=== PATIENT | female | born 1995 | race Caucasian/White ===

== ENCOUNTER 2017-11-09 13:21 | Outpatient (CLI) | payer OTHER, MEDICAID ==
[2017-11-09 13:51] LABS: APPEARANCE,URINE CLOUDY; BILIRUBIN,URINE NEGATIVE (NEGATIVE); COLOR,URINE YELLOW; GLUCOSE, URINE NEGATIVE (NEGATIVE); KETONES,URINE NEGATIVE (NEGATIVE); LEUKOCYTE ESTERASE,URINE TRACE (NEGATIVE); NITRITE,URINE NEGATIVE (NEGATIVE); PROTEIN,URINE 30 mg/dL (NEGATIVE); URINE SPECIFIC GRAVITY 1.024; UROBILINOGEN,URINE NEGATIVE mg/dL (<2.0)
--- NOTE | 2017-11-09 14:15 | Non Stress Test Report ---
Non Stress Test Datetime Report Generated by CPN: 11/09/2017 14:14 INDICATION Indication for Study: Ordered by Provider VITAL SIGNS Temperature - NST: 98.7 MONITORING Monitor Explained: Monitor Explained; Test Explained; Patient Verbalized Understanding Time on Monitor: 11/09/2017 13:39 Time off Monitor: 11/09/2017 14:07 NST Duration: 28 NST INTERVENTIONS NST Interventions: PO Hydration Physician Notified NST: Dr. Gaytan BABY A: [id number] BABY A Movement : Present Contraction Frequency : none FHR Baseline : 135 Accelerations : 15X15 Decelerations : None Variability : Moderate 6-25bpm NST Review: Meets Criteria for Reactive NST NST Review and Verified By : Radha Camp RNC NST Results: Reactive NST REPORT Report Trigger: Send Report
[2017-11-09 14:25] LABS: URINE AMPHETAMINES SCREEN NEGATIVE; URINE BARBITURATES SCREEN NEGATIVE; URINE BENZODIAZEPINES SCREEN NEGATIVE; URINE COCAINE SCREEN NEGATIVE; URINE MARIJUANA (THC) SCREEN NEGATIVE; URINE METHADONE SCREEN NEGATIVE; URINE PHENCYCLIDINE SCREEN NEGATIVE
== END 2017-11-09 14:31 | disposition home or self-care (01) ==
LOC: LC 13:21
PROVIDERS: ATTEND Student in an Organized Health Care Education/Training Program
PROC: 4A1HXCZ Monitoring of Products of Conception, Cardiac Rate, External Approach (ICD-10-PCS; principal; 2017-11-09)
DX: O46.93 Antepartum hemorrhage, unspecified, third trimester (principal); Z3A.39 39 weeks gestation of pregnancy
CPT/HCPCS: 59025; 80307; 81005

== ENCOUNTER 2017-11-21 00:09 | Inpatient (IN) | payer OTHER, MEDICAID ==
--- NOTE | 2017-11-21 00:51 | Admission Physical ---
Datetime Report Generated by CPN: 11/21/2017 00:50 CURRENT ADMISSION Chief Complaint: Scheduled Induction of Labor Indication for Induction: Post Dates Admit Impression : Postterm, Intrauterine Admit Plan: Admit to Unit; Initiate Labor Induction Protocol ALLERGIES Medication Allergies: No Medication Allergies: No Known Allergies (11/09/2017) Latex: No Latex Allergies OBSTETRICAL HISTORY EDC: 11/12/2017 00:00 (Annotations: Data stored by N on behalf of user) : 1 Para: 0 Term: 0 : 0 SAB: 0 IAB: 0 Ectopic: 0 Livin Cesareans: 0 VBACs: 0 Multiple Births: 0 Gestational Diabetes: No Rh Sensitization: No Incompetent Cervix: No ALISON: No Infertility: No ART Treatment: No Uterine Anomaly: No IUGR: No Hx Previous C/S: No Macrosomia: No Hx Loss/Stillborn: No PIH: No Hx : No Placenta Previa/Abruption: No Depression/PP Depression: No PTL/PROM: No Post Hemorrhage: No Current Procedures: Ultrasound; NST SEE RECORDS Alcohol: No Marijuana : No Cocaine: No Other Illicit Drugs: No Cigarettes: Former Smoker. [id number] MEDICAL HISTORY Diabetes: No Blood Transfusion: No Pulmonary Disease (Asthma, TB): No Breast Disease: No Hypertension: No Paratransit Driver Surgery: No Heart Disease: No Hosp/Surgery: No Autoimmune Disorder: No Anesthetic Complications: No Kidney Disease: No Abnormal Pap Smear: No Neuro/Epilepsy: No Psychiatric Disorders: No Other Medical Diseases: No Hepatitis/Liver Disease: No Significant Family History: No Varicosities/Phlebitis: No Trauma/Violence : No Thyroid Dysfunction: No INFECTIOUS HISTORY Gonorrhea: No Genital Herpes: No Chlamydia: Yes Tuberculosis: No Syphilis: No Hepatitis: No HIV/AIDS Exposure: No Rash or Viral Illness: No HPV: No Infectious History Comments: Chylamydia treated to cure 10/2017 PHYSICAL EXAM General: Normal HEENT: Normal Neurologic: Normal Thyroid: Normal Heart: Normal Lungs: Normal Breast: Deferred Back: Normal Abdomen: Normal Genitourinary Exam: Normal Extremities: Normal DTRs: Normal Pelvic Type: Adequate Vital Signs: Reviewed VAGINAL EXAM Dilatation: 1 Effacement: 80 Station: -1 MEMBRANES Pooling: Negative Membranes: Intact FETUS A EGA: 41.2 Monitoring: External US FHR- Baseline: 120 Variability: Moderate 6-25bpm Accelerations: 15X15 Decelerations: None FHR Category: Category I Presentation: Vertex Admit Comment: Planned cervadil PLANS FOR LABOR AND DELIVERY Labor and Delivery: None Pain Management: Epidural Feeding Preference: Breast Benefit of Breast Feed Discussed: Yes Circumcision: Yes INFORMED CONSENT Signature: with User ID: [email or web address]
[2017-11-21 00:53] LABS: APPEARANCE,URINE CLOUDY; BILIRUBIN,URINE NEGATIVE (NEGATIVE); COLOR,URINE YELLOW; GLUCOSE, URINE NEGATIVE (NEGATIVE); KETONES,URINE NEGATIVE (NEGATIVE); LEUKOCYTE ESTERASE,URINE LARGE (NEGATIVE); NITRITE,URINE NEGATIVE (NEGATIVE); PROTEIN,URINE NEGATIVE (NEGATIVE); URINE SPECIFIC GRAVITY 1.014; UROBILINOGEN,URINE NEGATIVE mg/dL (<2.0)
[2017-11-21 01:23] LABS: ABSOLUTE BASOPHILS # (AUTO) 0.1 10^3/uL (0.0-0.2); ABSOLUTE EOSINOPHILS # (AUTO) 0.1 10^3/uL (0.0-0.6); ABSOLUTE LYMPHOCYTES (AUTO) 1.7 10^3/uL (0.5-4.7); ABSOLUTE MONOCYTES (AUTO) 0.6 10^3/uL (0.1-1.4); ABSOLUTE NEUT (AUTO) 5.9 10^3/uL (1.7-8.2); BASOPHILS % (AUTO) 0.6 % (0-2); EOSINOPHILS % (AUTO) 0.9 % (0-6); HEMATOCRIT 29.6 % (36.0-47.0); HEMOGLOBIN 10.4 g/dL (12.0-15.5); LYMPHOCYTES % (AUTO) 20.1 % (13-45); MEAN CORPUSCULAR HGB CONC 35.2 g/dL (32.0-36.0); MEAN CORPUSCULAR VOLUME 91 fl (80-97); MONOCYTES % (AUTO) 7.3 % (3-13); PLATELET COUNT 210 10^3/uL (150-450); RED BLOOD COUNT 3.25 10^6/uL (3.72-5.28); RED CELL DISTRIBUTION WIDTH 13.7 % (11.5-14.0); SEGMENTED NEUTROPHILS % (AUTO) 71.1 % (42-78); TOTAL CELLS COUNTED % (AUTO) 100 %; WHITE BLOOD COUNT 8.3 10^3/uL (4.0-10.5)
[2017-11-21 01:24] LABS: URINE AMPHETAMINES SCREEN NEGATIVE; URINE BARBITURATES SCREEN NEGATIVE; URINE BENZODIAZEPINES SCREEN NEGATIVE; URINE COCAINE SCREEN NEGATIVE; URINE MARIJUANA (THC) SCREEN NEGATIVE; URINE METHADONE SCREEN NEGATIVE; URINE PHENCYCLIDINE SCREEN NEGATIVE
[2017-11-21] MEDS ORDERED: RINGERS SOLUTION,LACTATED 1,000 ML IV PRN (01:52)
[2017-11-21] MEDS ORDERED: RINGERS SOLUTION,LACTATED 300 ML IV ONE (02:05)
[2017-11-21] MEDS ORDERED: DINOPROSTONE 10 MG VAGINAL INSERT.SR PV ONE ×2 (02:07→02:30)
[2017-11-21] MEDS ORDERED: DINOPROSTONE 10 MG VAGINAL INSERT.SR ONE (02:15)
--- NOTE | 2017-11-21 09:31 | L&D Progress Notes ---
PROGRESS NOTES Datetime Report Generated by CPN: 11/21/2017 09:31 PROGRESS NOTE Impression Other: IUP @ [id number] Procedures: Sterile Vag Exam Plan: Continue Present Management; Induction Informed Consent Obtained: Vaginal Delivery; Induction of Labor; Risks, Benefits and Alternatives Discussed Vital Signs : Reviewed; Within Normal Limits Comment: S: pt. comfortable, not feeling crampy or contractions, denies any discomforts at this time O: VSS, cervix as stated, cervidil in place A: IUP @ [id number] IOL for post term P: continue IOL- will keep cervidil in place until 1330 then will start allow to shower/eat lunch if not in labor at that time and will start pitocin as needed VAGINAL EXAM Dilatation: 1-2 Dilatation: 1 Effacement: 80 Effacement: 80 Station: -1 Station: -1 Contractions: irreg MEMBRANES Pooling: Negative Membranes: Intact Membranes: Intact FETUS A Monitoring: External US Variability: Moderate 6-25bpm Accelerations: 15X15 Decelerations: None FHR Category: Category I : 41.0 Presentation: Vertex SIGNATURE SIGNATURE: [id number];[id number];[id number] SIGNATURE: [id number];[id number] SIGNATURE: [id number] Assignment: Guy Jesus MD Signature: with User ID: [email or web address] : with User ID: [email or web address]
[2017-11-21] MEDS ORDERED: PENICILLIN G POTASSIUM 5,000,000 UNIT in DEXTROSE 5%-WATER 100 ML IV ONE (13:20)
[2017-11-21] MEDS ORDERED: PENICILLIN G-K 5 MILLION UNIT VIAL ONE ×2 (14:24→18:03)
[2017-11-21] MEDS ORDERED: OXYTOCIN/NORMAL SALINE 20 UNIT/1,000 ML RTUINJ ONE (14:24)
[2017-11-21] MEDS ORDERED: OXYTOCIN/NORMAL SALINE 20 UNIT/1,000 ML RTUINJ IV PRN ×2 (14:30→19:29)
[2017-11-21] MEDS ORDERED: FENTANYL/BUPIVACAINE/NS/PF 200 MCG/100 ML RTUINJ EPI ONE (15:02)
[2017-11-21] MEDS ORDERED: EPHEDRINE SULFATE INJ 50 MG/1 ML AMPULE ONE (15:02)
[2017-11-21] MEDS ORDERED: BUPIVACAINE HCL 0.5 % INJ/PF 30 ML SDV ONE (15:03)
[2017-11-21] MEDS ORDERED: FENTANYL CITRATE INJ/PF 100 MCG/2 ML AMPUL ONE (15:38)
[2017-11-21] MEDS ORDERED: PENICILLIN G POTASSIUM 2,500,000 UNIT in DEXTROSE 5%-WATER 50 ML IV SCH (17:21)
--- NOTE | 2017-11-21 17:31 | L&D Progress Notes ---
PROGRESS NOTES Datetime Report Generated by CPN: 11/21/2017 17:31 PROGRESS NOTE Impression Other: IUP @ 80w2h-IYP stable Procedures: Artificial ROM; Sterile Vag Exam Plan: Continue Present Management; Induction Informed Consent Obtained: Vaginal Delivery; Induction of Labor; Risks, Benefits and Alternatives Discussed Vital Signs : Reviewed; Within Normal Limits Comment: S: reports complete relief with epidural placement O:vss, cervix as stated, pit @ 8mu/min A: IUP @ 41w2d IOL-stable AROM-clear fluid, tolerated well P: continue IOL with pitocin, anticipate delivery VAGINAL EXAM Dilatation: 6 Effacement: 100 Station: 0 Contractions: irregular MEMBRANES Membranes: Ruptured Amniotic Fluid Color: Clear FETUS A FHR - Baseline: 125 Monitoring: External US Variability: Moderate 6-25bpm FHR Category: Category I FETUS C SIGNATURE: [id number];[id number];[id number] Assignment: Guy Jesus MD Signature: with User ID: [email or web address] : with User ID: [email or web address]
[2017-11-21] MEDS ORDERED: GLYCERIN/WITCH HAZEL LEAF 1 EACH MED..PAD TP PRN (19:29)
[2017-11-21] MEDS ORDERED: PROMETHAZINE HCL INJ 25 MG/1 ML VIAL IV PRN (19:29)
[2017-11-21] MEDS ORDERED: DIBUCAINE 1% OINTMENT 28 GM TP PRN (19:29)
[2017-11-21] MEDS ORDERED: DIPHENHYDRAMINE HCL 25 MG CAPSULE PO PRN (19:29)
[2017-11-21] MEDS ORDERED: MEASLES,MUMPS&RUBELLA VACC/PF 0.5 ML VIAL SUBCUT PRN (19:29)
[2017-11-21] MEDS ORDERED: DIPH/PERTUSS(ACELL)/TETANUS VAC/PF 0.5 ML SYR (>=10YO) IM PRN (19:29)
[2017-11-21] MEDS ORDERED: MAGNESIUM HYDROXIDE SUSP 30 ML UDCUP PO PRN (19:29)
[2017-11-21] MEDS ORDERED: ZOLPIDEM TARTRATE 5 MG TABLET PO PRN (19:29)
[2017-11-21] MEDS ORDERED: PROMETHAZINE HCL 25 MG SUPP.RECT PR PRN (19:29)
[2017-11-21] MEDS ORDERED: PROMETHAZINE HCL 25 MG TABLET PO PRN (19:29)
[2017-11-21] MEDS ORDERED: ACETAMINOPHEN WITH CODEINE #3 TABLET PO PRN (19:29)
[2017-11-21] MEDS ORDERED: PSEUDOEPHEDRINE HCL 30 MG TABLET PO PRN (19:29)
[2017-11-21] MEDS ORDERED: NA PHOS,M-B/NA PHOS,DI-BA (ADULT) 133 ML ENEMA PR PRN (19:29)
[2017-11-21] MEDS ORDERED: BENZOCAINE/MENTHOL AEROSOL SPRAY 56 ML TOP PRN (19:29)
[2017-11-21] MEDS ORDERED: ACETAMINOPHEN 650 MG SUPP.RECT PR PRN (19:29)
--- NOTE | 2017-11-21 19:29 | PDOC DELIVERY SUMMARY ---
Delivery Summary - Maternal Ruptured Membranes: AROM Fluids: Clear - Delivery Labor: Induction Presentation: Vertex Uterine Contraction Monitoring: External Support Person Present: Yes Number of Vessels (Cord): 3 Nuchal Cord: No - Medications Type of Anesthesia:: Epidural
[2017-11-21] MEDS ORDERED: IBUPROFEN 800 MG TABLET ONE (19:55)
--- NOTE | 2017-11-21 21:27 | Warning Signs in Babies ---
VOD Warning Signs Datetime Report Generated by [facility]: 11/21/2017 21:27 VOD#608 -Warning Signs in Babies: Viewed with Parent(s)/Family (11/09/2017 14:12:Sari Mora RN)
--- NOTE | 2017-11-21 21:27 | Delivery Summary ---
Del Sum A-C Datetime Report Generated by CPN: 11/21/2017 21:27 DELIVERY PERSONNEL DELIVERY PERSONNEL: [id number] Delivery Doctor:: Guy Jesus, MD Labor and Delivery Nurse:: Leonela Wheat prepress operator Nurse:: Sari Mora RN Additional Personnel: : Kev Ertel, TANK WELDER MATERNAL INFORMATION Delivery Anesthesia: Epidural Medications After Delivery: Pitocin Drip 20 Units/1000ml NSS Maternal Complications: None LABOR SUMMARY EDC: 11/12/2017 00:00 (Annotations: Data stored by [facility] on behalf of user) No. Babies in Womb: 1 Attempted: No Labor Anesthesia: Epidural LABOR INFORMATION Reason for Induction: Post Dates Onset of Labor: 11/21/2017 09:05 Complete Dilatation: 11/21/2017 18:49 Cervical Ripening Agents: Cervidil Oxytocin: Induction Group B Beta Strep: Positive Antibiotics # of Doses: 2 Antibiotics Time of Last Dose: 1808 Name of Antibiotic Given: PCN Steroids Given: None Reason Steroids Not Administered: Not Applicable MEMBRANES Membranes Rupture Method: Artificial Rupture of Membranes: 11/21/2017 17:16 Length of Rupture (hr): 1.97 Amniotic Fluid Color: Clear Amniotic Fluid Amount: Small Amniotic Fluid Odor: Normal STAGES OF LABOR Stage 1 hr: 9 Stage 1 min: 44 Stage 2 hr: 0 Stage 2 min: 25 Stage 3 hr: 0 Stage 3 min: 4 Total Time in Labor hr: 10 Total Time in Labor min: 13 VAGINAL DELIVERY Episiotomy: None Laceration #1: Vaginal Laceration Extension #1: N/A Laceration Repair: Not Applicable Laceration Repair Note: repaired with 2-0 vicryl Sponge Count Correct: N/A Sharps Count Correct: N/A CSECTION DELIVERY Primary Indication: N/A Secondary Indication: N/A CSection Incidence: N/A Labor: N/A Elective: N/A CSection Incision: N/A BABY A INFORMATION Infant Delivery Date/Time: 11/21/2017 19:14 Method of Delivery: Vaginal Born in Route : No : N/A Forceps: N/A Vacuum Extraction: N/A Shoulder Dystocia : No PRESENTATION/POSITION BABY A Presentation: Cephalic Cephalic Presentation: Vertex Vertex Position: Left Occipital Anterior Breech Presentation: N/A PLACENTA INFORMATION BABY A Placenta Delivery Time : 11/21/2017 19:18 Placenta Method of Delivery: Spontaneous Placenta Status: Delivered SCORES BABY A Heart Rate 1 min: >100 bpm Resp Effort 1 min: Good Cry Reflex Irritability 1 min: Cough or Sneeze or Pulls Away Muscle Tone 1 min: Active Motion Color 1 min: Blue/Pale SCORE 1 MIN: 8 Heart Rate 5 min: >100 bpm Resp Effort 5 min: Good Cry Reflex Irritability 5 min: Cough or Sneeze or Pulls Away Muscle Tone 5 min: Active Motion Color 5 min: Body [place], Extremities Blue SCORE 5 MIN: 9 INFANT INFORMATION BABY A Gestational Age at Delivery: 41.2 Gestational Status: Late Term- 41- 41.6 Weeks Infant Outcome : Liveborn Infant Condition : Stable Infant Sex: Male IDENTIFICATION BABY A Verification Date/Time: 11/21/2017 19:30 ID Band Number: [id number] Mother's Name Verified: Yes Infant RN Verifying : Pacheco Dietrich RN WEIGHT/LENGTH BABY A Birthweight (gm): 3790 Weight (lb): 8 Infant Weight (oz): 6 Infant Length (in): 20.50 Infant Length (cm): 52.07 CORD INFORMATION BABY A No. Cord Vessels: 3 Nuchal Cord : N/A Cord Blood Taken: Yes-For Storage (Mom's Blood type +) Infant Suction: Mouth; Nose ASSESSMENT BABY A Infant Complications: None Physical Findings at Delivery: Within Normal Limits Respirations: Appears Normal Skin to Skin: Yes Skin to Skin Time (min): 60 Transferred To: Nursery BABY B INFORMATION : N/A SIGNATURES Signature: with User ID: [email or web address]
--- NOTE | 2017-11-21 21:42 | Warning Signs in Babies ---
VOD Warning Signs Datetime Report Generated by N: 11/21/2017 21:42 VOD#608 -Warning Signs in Babies: Viewed with Parent(s)/Family (11/21/2017 21:30:Sari Mora RN)
[2017-11-22] MEDS: IBUPROFEN 800 MG TABLET PO SCH ×4 (05:52→21:45)
[2017-11-22 07:49] LABS: HEMATOCRIT 29.1 % (36.0-47.0); HEMOGLOBIN 10.1 g/dL (12.0-15.5); MEAN CORPUSCULAR HEMOGLOBIN 31.8 pg (27.0-33.4); MEAN CORPUSCULAR HGB CONC 34.6 g/dL (32.0-36.0); MEAN CORPUSCULAR VOLUME 92 fl (80-97); PLATELET COUNT 203 10^3/uL (150-450); RED BLOOD COUNT 3.16 10^6/uL (3.72-5.28); RED CELL DISTRIBUTION WIDTH 14.2 % (11.5-14.0); WHITE BLOOD COUNT 14.5 10^3/uL (4.0-10.5)
[2017-11-22] MEDS: FAMOTIDINE 20 MG TABLET PO SCH ×3 (08:01→21:45)
[2017-11-22] MEDS: FERROUS SULFATE 325 MG TABLET PO SCH ×2 (09:54→17:42)
[2017-11-22] MEDS: PRENATAL VITAMIN W DHA CAPSULE PO SCH (09:54)
[2017-11-22] MEDS: SENNOSIDES/DOCUSATE 8.6-50 MG 1 EACH TABLET PO SCH (09:54)
[2017-11-22] MEDS: DOCUSATE SODIUM 100 MG CAPSULE PO SCH ×2 (09:54→17:42)
--- NOTE | 2017-11-22 12:52 | PDOC PROGRESS REPORT ---
Subjective-OB Progress Note for:: 11/22/17 Subjective: Pt doing well, no concerns. She reports light bleeding, reg diet and voiding without difficulty. Physical Exam (OB) Vital Signs: Temp Pulse Resp BP Pulse Ox 98.5 F 50 L 16 129/84 H 100 11/22/17 07:36 11/22/17 07:36 11/22/17 07:36 11/22/17 07:36 11/22/17 07:36 Intake & Output 11/21/17 11/22/17 11/23/17 06:59 06:59 06:59 Weight 80.5 kg - PIH/Pre-Eclampsia Headache: Absent Epigastric Pain: No Visual Changes: No - Lochia Lochia Amount: Scant < 10 ml Lochia Color: Rubra/Red - Abdomen Description: Tender Hernia Present: No Fundal Description: Firm Fundal Height: u/u - u/2 Objective-Diagnostic Laboratory: 11/22/17 07:11 11/22/17 07:11 WBC 14.5 H RBC 3.16 L Hgb 10.1 L Hct 29.1 L MCV 92 MCH 31.8 MCHC 34.6 RDW 14.2 H Plt Count 203 Assessment and Plan(PN) - Assessment and Plan (1) Vaginal delivery Is this a current diagnosis for this admission?: Yes - Time Spent with Patient Time with patient: Less than 15 minutes Medications reviewed and adjusted accordingly: Yes - Disposition Anticipated Discharge: Home Within: within 24 hours
[2017-11-23] MEDS: IBUPROFEN 800 MG TABLET PO SCH (06:08)
--- NOTE | 2017-11-23 09:01 | PDOC DISCHARGE SUMMARY ---
Final Diagnosis Discharge Date: 11/23/17 - Final Diagnosis (2) Vaginal delivery Is this a current diagnosis for this admission?: Yes Discharge Data - Discharge Medication Prescriptions: Ibuprofen [Motrin 800 mg Tablet] 800 mg PO Q8 #90 tablet Home Medications: Pnv No.95/Ferrous Fum/Folic AC [ Multivitamin Tablet] 1 tab PO DAILY Ibuprofen [Motrin 800 mg Tablet] 800 mg PO Q8 #90 tablet 11/23/17 Reason(s) for Admission: Induction of Labor Procedures: None Intrapartum Procedure(s): Spontaneous Vaginal Delivery - Diagnosis Test Laboratory: Temp Pulse Resp BP Pulse Ox 98.2 F 58 L 17 115/60 99 11/23/17 08:35 11/23/17 08:35 11/23/17 08:35 11/22/17 19:54 11/23/17 08:35 11/21/17 11/21/17 11/22/17 00:30 01:03 07:11 RBC 3.25 L 3.16 L Hgb 10.4 L 10.1 L Hct 29.6 L 29.1 L Urine Opiates Screen NEGATIVE - Discharge information/Instructions Discharge Activity: Activity As Tolerated, No Driving, No Lifting/Push/Pulling, Pelvic Rest, Slowly Increase Activity, No tub bath, Walk Frequently Discharge Diet: Regular Disposition: HOME, SELF-CARE Follow up with: [facility] in: 3
[2017-11-23 09:04] VITALS: BP 125/68
[2017-11-23] MEDS: FERROUS SULFATE 325 MG TABLET PO SCH (10:51)
[2017-11-23] MEDS: DOCUSATE SODIUM 100 MG CAPSULE PO SCH (10:51)
[2017-11-23] MEDS: SENNOSIDES/DOCUSATE 8.6-50 MG 1 EACH TABLET PO SCH (10:51)
[2017-11-23] MEDS: FAMOTIDINE 20 MG TABLET PO SCH (10:51)
[2017-11-23] MEDS: PRENATAL VITAMIN W DHA CAPSULE PO SCH (10:51)
== END 2017-11-23 12:38 | disposition home or self-care (01) | DRG 775 ==
LOC: LR 00:09 → 2S 22:02
PROVIDERS: ADMIT Obstetrics & Gynecology; ATTEND Obstetrics & Gynecology
PROC: 10E0XZZ Delivery of Products of Conception, External Approach (ICD-10-PCS; principal; 2017-11-21)
PROC: 0HQ9XZZ Repair Perineum Skin, External Approach (ICD-10-PCS; 2017-11-21)
PROC: 3E033VJ Introduction of Other Hormone into Peripheral Vein, Percutaneous Approach (ICD-10-PCS; 2017-11-21)
PROC: 3E0P7VZ Introduction of Hormone into Female Reproductive, Via Natural or Artificial Opening (ICD-10-PCS; 2017-11-21)
PROC: 10907ZC Drainage of Amniotic Fluid, Therapeutic from Products of Conception, Via Natural or Artificial Opening (ICD-10-PCS; 2017-11-21)
PROC: 4A1HXCZ Monitoring of Products of Conception, Cardiac Rate, External Approach (ICD-10-PCS; 2017-11-21)
DX: O48.0 Post-term pregnancy (principal); O99.824 Streptococcus B carrier state complicating childbirth; O70.0 First degree perineal laceration during delivery; Z87.891 Personal history of nicotine dependence; Z3A.41 41 weeks gestation of pregnancy; Z37.0 Single live birth
CPT/HCPCS: 36415; 80307; 81005; 85025; 85027; 86592; 86850; 86900; 86901; J2540; J2590; J3010; J3490

== ENCOUNTER 2019-10-04 06:53 | Inpatient (IN) | payer MEDICAID ==
[2019-10-04 07:41] LABS: ABSOLUTE BASOPHILS # (AUTO) 0.1 10^3/uL (0.0-0.2); ABSOLUTE EOSINOPHILS # (AUTO) 0.1 10^3/uL (0.0-0.6); ABSOLUTE LYMPHOCYTES (AUTO) 1.9 10^3/uL (0.5-4.7); ABSOLUTE MONOCYTES (AUTO) 0.6 10^3/uL (0.1-1.4); ABSOLUTE NEUT (AUTO) 6.3 10^3/uL (1.7-8.2); BASOPHILS % (AUTO) 0.8 % (0-2); EOSINOPHILS % (AUTO) 0.8 % (0-6); HEMATOCRIT 36.4 % (36.0-47.0); HEMOGLOBIN 12.5 g/dL (12.0-15.5); LYMPHOCYTES % (AUTO) 21.6 % (13-45); MEAN CORPUSCULAR HEMOGLOBIN 31.5 pg (27.0-33.4); MEAN CORPUSCULAR HGB CONC 34.4 g/dL (32.0-36.0); MEAN CORPUSCULAR VOLUME 92 fl (80-97); MONOCYTES % (AUTO) 6.6 % (3-13); PLATELET COUNT 229 10^3/uL (150-450); RED BLOOD COUNT 3.98 10^6/uL (3.72-5.28); RED CELL DISTRIBUTION WIDTH 13.3 % (11.5-14.0); SEGMENTED NEUTROPHILS % (AUTO) 70.2 % (42-78); TOTAL CELLS COUNTED % (AUTO) 100 %
[2019-10-04 07:45] LABS: APPEARANCE,URINE SLIGHTLY-CLOUDY; BILIRUBIN,URINE NEGATIVE (NEGATIVE); COLOR,URINE YELLOW; GLUCOSE, URINE NEGATIVE (NEGATIVE); KETONES,URINE TRACE mg/dL (NEGATIVE); LEUKOCYTE ESTERASE,URINE TRACE (NEGATIVE); NITRITE,URINE NEGATIVE (NEGATIVE); PROTEIN,URINE 30 mg/dL (NEGATIVE); UROBILINOGEN,URINE NEGATIVE mg/dL (<2.0)
[2019-10-04 08:02] LABS: URINE AMPHETAMINES SCREEN NEGATIVE; URINE BARBITURATES SCREEN NEGATIVE; URINE BENZODIAZEPINES SCREEN NEGATIVE; URINE COCAINE SCREEN NEGATIVE; URINE MARIJUANA (THC) SCREEN NEGATIVE; URINE METHADONE SCREEN NEGATIVE; URINE PHENCYCLIDINE SCREEN NEGATIVE
[2019-10-04] MEDS ORDERED: LIDOCAINE 1% INJ-PF (10 MG/ML) 30 ML SDV ONE ×2 (08:03→11:06)
[2019-10-04] MEDS ORDERED: MISOPROSTOL 0.2 MG TABLET ONE ×2 (08:03→11:06)
[2019-10-04] MEDS ORDERED: OXYTOCIN/0.9 % SODIUM CHLORIDE 30 UNIT/500 ML RTUINJ ONE ×2 (08:03→15:12)
[2019-10-04] MEDS ORDERED: OXYTOCIN 10 UNIT/ML VIAL ONE ×2 (08:03→11:05)
[2019-10-04] MEDS ORDERED: PENICILLIN G-K 5 MILLION UNIT VIAL ONE ×2 (08:16→11:43)
[2019-10-04] MEDS ORDERED: BUPIVACAINE HCL 0.25 % INJ/PF (2.5 MG/1 ML) 30 ML VIAL ONE (12:18)
[2019-10-04] MEDS ORDERED: FENTANYL/BUPIVACAINE/NS/PF 300 MCG/150 ML RTUINJ EPI ONE (12:18)
[2019-10-04] MEDS ORDERED: EPHEDRINE SULFATE INJ 50 MG/1 ML AMPULE ONE (12:18)
--- NOTE | 2019-10-04 12:48 | Admission Physical ---
Datetime Report Generated by CPN: 10/04/2019 12:47 CURRENT ADMISSION Chief Complaint: Scheduled Induction of Labor Indication for Induction: Post Dates Admit Impression : Postterm, Intrauterine ; No Active Labor Admit Plan: Initiate Labor Induction Protocol Admit Plan- Other: GBS + ALLERGIES Medication Allergies: No Medication Allergies: No Known Allergies (05/01/2018) Latex: No Latex Allergies Food Allergies: none Environmental Allergies: none OBSTETRICAL HISTORY EDC: 09/29/2019 00:00 : 2 Para: 1 Term: 1 : 0 SAB: 0 IAB: 0 Ectopic: 0 Livin Cesareans: 0 VBACs: 0 Multiple Births: 0 Gestational Diabetes: No Rh Sensitization: No Incompetent Cervix: No ALISON: No Infertility: No ART Treatment: No Uterine Anomaly: No IUGR: No Hx Previous C/S: No Macrosomia: No Hx Loss/Stillborn: No PIH: No Hx : No Placenta Previa/Abruption: No Depression/PP Depression: Yes PTL/PROM: No Post Hemorrhage: No Current Procedures: Ultrasound; NST Obstetrical History Comments: 2017 G2- Current SEE RECORDS Alcohol: No Marijuana : No Cocaine: No Other Illicit Drugs: No Cigarettes: Never Smoker. [id number] MEDICAL HISTORY Diabetes: No Blood Transfusion: No Pulmonary Disease (Asthma, TB): No Breast Disease: No Hypertension: No Herb Digger Surgery: No Heart Disease: No Hosp/Surgery: No Autoimmune Disorder: No Anesthetic Complications: No Kidney Disease: Yes Abnormal Pap Smear: No Neuro/Epilepsy: No Psychiatric Disorders: No Other Medical Diseases: No Hepatitis/Liver Disease: No Significant Family History: No Trauma/Violence : No INFECTIOUS HISTORY Gonorrhea: No Genital Herpes: No Chlamydia: No Tuberculosis: No Syphilis: No Hepatitis: No HIV/AIDS Exposure: No Rash or Viral Illness: No HPV: Yes PHYSICAL EXAM General: Normal HEENT: Normal Neurologic: Normal Thyroid: Deferred Heart: Normal Lungs: Normal Breast: Deferred Back: Deferred Abdomen: Normal Genitourinary Exam: Normal Extremities: Normal DTRs: Deferred Pelvic Type: Adequate Vital Signs: Reviewed VAGINAL EXAM Dilatation: 3 Effacement: 50 Station: -2 Contraction Comments: few MEMBRANES Membranes: Intact FETUS A EGA: 40.5 FHR- Baseline: 140 Variability: Moderate 6-25bpm Accelerations: 15X15 Presentation: Vertex Admit Comment: GBS+, treat with PCN AROM after 2nd dose plans for epidural PLANS FOR LABOR AND DELIVERY Labor and Delivery: None Pain Management: Epidural Feeding Preference: Breast Circumcision: Yes INFORMED CONSENT Assignment: Guy Jesus MD Signature: with User ID: [email or web address] : with User ID: [email or web address]
[2019-10-04] MEDS ORDERED: DIPH/PERTUSS(ACELL)/TETANUS VAC/PF 0.5 ML SYR (>=10YO) IM PRN (15:50)
[2019-10-04] MEDS ORDERED: OXYTOCIN/0.9 % SODIUM CHLORIDE 30 UNIT/500 ML RTUINJ IV PRN (15:50)
[2019-10-04] MEDS ORDERED: MAGNESIUM HYDROXIDE SUSP 30 ML UDCUP PO PRN (15:50)
[2019-10-04] MEDS ORDERED: DIPHENHYDRAMINE HCL 25 MG CAPSULE PO PRN (15:50)
[2019-10-04] MEDS ORDERED: PROMETHAZINE HCL 25 MG TABLET PO PRN (15:50)
[2019-10-04] MEDS ORDERED: DIBUCAINE 1% OINTMENT 28 GM TP PRN (15:50)
[2019-10-04] MEDS ORDERED: ZOLPIDEM TARTRATE 5 MG TABLET PO PRN (15:50)
[2019-10-04] MEDS ORDERED: MEASLES,MUMPS&RUBELLA VACC/PF 0.5 ML VIAL SUBCUT PRN (15:50)
[2019-10-04] MEDS ORDERED: BENZOCAINE/MENTHOL AEROSOL SPRAY 56 ML TOP PRN (15:50)
[2019-10-04] MEDS ORDERED: GLYCERIN/WITCH HAZEL LEAF 1 EACH MED..WIPE TP PRN (15:50)
--- NOTE | 2019-10-04 18:10 | Delivery Summary ---
Del Sum A-C Datetime Report Generated by CPN: 10/04/2019 18:10 DELIVERY PERSONNEL DELIVERY PERSONNEL: [id number] Delivery Doctor:: Guy Jesus MD Nurse Mine Boss Certified:: Monica Connelly CNM COMMUNITY HEALTH REPRESENTATIVE:: Ernestine Parekh CRNA Labor and Delivery Nurse:: Ashli Quintero RNlasting machine operator Nurse:: Yannick Laswon RN Nursery Nurse:: Willa Mcdonnell RN Curriculum Manager/CONSTRUCTION CHECKER: Lori Oliveira, ST MATERNAL INFORMATION Delivery Anesthesia: Epidural Medications After Delivery: Pitocin 30 Units in 500ml NS/D5W Delivery QBL: 150 Maternal Complications: None Provider Comments: SVDVM over intact perineum. MITCHELL to SRUTHI with loose nuchal cord reduced. Infant with spont cry, to maternal abd. Dried and stimulated, bulb suctioned per Nursery RN. Placenta partially , assisted with removal at [facility]. Bleeding noted, cytotec placed rectally. Apgars 8,8. QBL 150. Mother and infant stable. LABOR SUMMARY EDC: 09/29/2019 00:00 No. Babies in Womb: 1 Attempted: No Labor Anesthesia: Epidural LABOR INFORMATION Reason for Induction: Post Dates Onset of Labor: 10/04/2019 07:45 Complete Dilatation: 10/04/2019 14:10 Oxytocin: Induction Group B Beta Strep: Positive Antibiotics # of Doses: 2 Antibiotics Time of Last Dose: 1130 Name of Antibiotic Given: Penicillin Steroids Given: None Reason Steroids Not Administered: Not Applicable MEMBRANES Membranes Rupture Method: Artificial Rupture of Membranes: 10/04/2019 12:06 Length of Rupture (hr): 2.78 Amniotic Fluid Color: Heavy Meconium Amniotic Fluid Amount: Small STAGES OF LABOR Stage 1 hr: 6 Stage 1 min: 25 Stage 2 hr: 0 Stage 2 min: 43 Stage 3 hr: 0 Stage 3 min: 5 Total Time in Labor hr: 7 Total Time in Labor min: 13 VAGINAL DELIVERY Episiotomy: None Laceration #1: Vaginal Laceration Extension #1: First Degree Other Laceration: small vaginal lac (Annotations: Data stored by [facility] on behalf of user) Laceration Repair: Not Applicable Laceration Repair Note: vicryl suture used for repair by Dr. Jesus BABY A INFORMATION Delivery Date/Time: 10/04/2019 14:53 Method of Delivery: Vaginal Nurse Controlled Delivery: No Born in Route : No : N/A Forceps: N/A Vacuum Extraction: N/A Shoulder Dystocia : No PRESENTATION/POSITION BABY A Presentation: Cephalic Cephalic Presentation: Brow Vertex Position: Left Occipital Posterior Breech Presentation: N/A PLACENTA INFORMATION BABY A Placenta Delivery Time : 10/04/2019 14:58 Placenta Method of Delivery: Spontaneous Placenta Status: Delivered SCORES BABY A Heart Rate 1 min: >100 bpm Resp Effort 1 min: Good Cry Reflex Irritability 1 min: Cough or Sneeze or Pulls Away Muscle Tone 1 min: Active Motion Color 1 min: Blue/Pale Resuscitation Effort 1 min: Tactile Stimulation SCORE 1 MIN: 8 Heart Rate 5 min: >100 bpm Resp Effort 5 min: Good Cry Reflex Irritability 5 min: Cough or Sneeze or Pulls Away Muscle Tone 5 min: Active Motion Color 5 min: Blue/Pale Resuscitation Effort 5 min: Tactile Stimulation; Oxygen SCORE 5 MIN: 8 Heart Rate 10 min: >100 bpm Resp Effort 10 min: Good Cry Reflex Irritability 10 min: Cough or Sneeze or Pulls Away Muscle Tone 10 min: Active Motion Color 10 min: Body [place], Extremities Blue Resuscitation Effort 10 min: N/A SCORE 10 MIN: 9 INFANT INFORMATION BABY A Gestational Age at Delivery: 40.5 Gestational Status: Full Term- 39- 40.6 Weeks Infant Outcome : Liveborn Condition : Stable Sex: Male IDENTIFICATION BABY A Infant Verification Date/Time: 10/04/2019 15:02 ID Band Number: [id number] Mother's Name Verified: Yes Infant RN Verifying : GRIS Ramirez Additional Verifying Personnel: GRIS Teague WEIGHT/LENGTH BABY A Infant Birthweight (gm): 4499 Infant Weight (lb): 9 Weight (oz): 15 Infant Length (in): 21.00 Length (cm): 53.34 CORD INFORMATION BABY A No. Cord Vessels: 3 Nuchal Cord : Around Neck x1, Loose Suction: Mouth; Nose ASSESSMENT BABY A Infant Complications: Meconium Physical Findings at Delivery: Bruising Skin to Skin: Yes SIGNATURES Assignment: Guy Jesus MD Signature: with User ID: [email or web address] : with User ID: [email or web address] : I was personally available for consultation and serving as supervising physician for the P.
[2019-10-04] MEDS: FERROUS SULFATE 325 MG TABLET PO SCH (20:31)
[2019-10-04] MEDS: DOCUSATE SODIUM 100 MG CAPSULE PO SCH (20:31)
[2019-10-04] MEDS: IBUPROFEN 800 MG TABLET PO SCH (21:27)
[2019-10-05] MEDS: IBUPROFEN 800 MG TABLET PO SCH ×3 (05:57→21:10)
[2019-10-05 08:00] LABS: HEMATOCRIT 31.9 % (36.0-47.0); HEMOGLOBIN 11.1 g/dL (12.0-15.5); MEAN CORPUSCULAR HEMOGLOBIN 31.9 pg (27.0-33.4); MEAN CORPUSCULAR HGB CONC 34.7 g/dL (32.0-36.0); MEAN CORPUSCULAR VOLUME 92 fl (80-97); PLATELET COUNT 182 10^3/uL (150-450); RED BLOOD COUNT 3.48 10^6/uL (3.72-5.28); RED CELL DISTRIBUTION WIDTH 13.3 % (11.5-14.0); WHITE BLOOD COUNT 10.7 10^3/uL (4.0-10.5)
[2019-10-05] MEDS: DOCUSATE SODIUM 100 MG CAPSULE PO SCH ×2 (09:53→18:44)
[2019-10-05] MEDS: FERROUS SULFATE 325 MG TABLET PO SCH ×2 (09:53→18:45)
[2019-10-05] MEDS: PRENATAL VITAMIN W DHA CAPSULE PO SCH (09:53)
[2019-10-05] MEDS: SENNOSIDES/DOCUSATE 8.6-50 MG 1 EACH TABLET PO SCH (09:53)
--- NOTE | 2019-10-05 11:26 | PDOC PROGRESS REPORT ---
Subjective-OB Progress Note for:: 10/05/19 Subjective: Pt doing well, no concerns. She reports light bleeding, reg diet and voiding without difficulty. Physical Exam (OB) Vital Signs: Temp Pulse Resp BP Pulse Ox 97.7 F 57 L 18 115/68 99 10/05/19 07:30 10/05/19 07:30 10/05/19 07:30 10/05/19 07:30 10/05/19 07:30 Intake & Output 10/04/19 10/05/19 10/06/19 06:59 06:59 06:59 Weight 87.4 kg - Lochia Lochia Amount: Scant < 10 ml Lochia Color: Rubra/Red - Abdomen Description: Soft Hernia Present: No Fundal Description: Firm, Midline Fundal Height: u/u - u/2 Objective-Diagnostic Laboratory: 10/05/19 07:13 10/05/19 07:13 WBC 10.7 H RBC 3.48 L Hgb 11.1 L Hct 31.9 L MCV 92 MCH 31.9 MCHC 34.7 RDW 13.3 Plt Count 182 Assessment and Plan(PN) - Assessment and Plan (1) Qualifiers: Weeks of gestation: 40 weeks Qualified Code(s): Z3A.40 - 40 weeks gestation of Is this a current diagnosis for this admission?: Yes (2) Vaginal delivery Is this a current diagnosis for this admission?: Yes - Time Spent with Patient Time with patient: Less than 15 minutes Medications reviewed and adjusted accordingly: Yes - Disposition Anticipated Discharge: Home Within: within 24 hours
[2019-10-06] MEDS: IBUPROFEN 800 MG TABLET PO SCH (05:13)
--- NOTE | 2019-10-06 09:00 | PDOC DISCHARGE SUMMARY ---
Impression - Admit/DC Date/PCP Admission Date/Primary Care Provider: 10/04/19 06:53 VICTORINO GILMORE MD Discharge Date: 10/06/19 - Discharge Diagnosis (1) Is this a current diagnosis for this admission?: Yes (2) Vaginal delivery Is this a current diagnosis for this admission?: Yes - Additional Information Resuscitation Status: Full Code Discharge Diet: Regular Discharge Activity: Balance Activity w/Rest, Pelvic Rest Referrals: VICTORINO GILMORE MD [Primary Care Provider] - Prescriptions: Ibuprofen [Motrin 800 mg Tablet] 800 mg PO Q8HP PRN #60 tablet PRN Reason: Home Medications: Pnv No.95/Ferrous Fum/Folic AC [ Multivitamin Tablet] 1 tab PO DAILY 11/09/17 Escitalopram Oxalate [Lexapro] 5 mg PO 10/04/19 Ibuprofen [Motrin 800 mg Tablet] 800 mg PO Q8HP PRN #60 tablet 10/06/19 HPI Gestational Age: 40 Reason(s) for Admission: Induction of Labor Procedures: NST Intrapartum Procedure(s): Spontaneous Vaginal Delivery Complication(s): Laceration-Vaginal Laceration-Degree: 1st Results Laboratory Results: WBC 10.7 10^3/uL (4.0-10.5) H 10/05/19 07:13 RBC 3.48 10^6/uL (3.72-5.28) L 10/05/19 07:13 Hgb 11.1 g/dL (12.0-15.5) L 10/05/19 07:13 Hct 31.9 % (36.0-47.0) L 10/05/19 07:13 MCV 92 fl (80-97) 10/05/19 07:13 MCH 31.9 pg (27.0-33.4) 10/05/19 07:13 MCHC 34.7 g/dL (32.0-36.0) 10/05/19 07:13 RDW 13.3 % (11.5-14.0) 10/05/19 07:13 Plt Count 182 10^3/uL (150-450) 10/05/19 07:13 Lymph % (Auto) 21.6 % (13-45) 10/04/19 07:16 [place] % (Auto) 6.6 % (3-13) 10/04/19 07:16 Eos % (Auto) 0.8 % (0-6) 10/04/19 07:16 Baso % (Auto) 0.8 % (0-2) 10/04/19 07:16 Absolute Neuts (auto) 6.3 10^3/uL (1.7-8.2) 10/04/19 07:16 Absolute Lymphs (auto) 1.9 10^3/uL (0.5-4.7) 10/04/19 07:16 Absolute Monos (auto) 0.6 10^3/uL (0.1-1.4) 10/04/19 07:16 Absolute Eos (auto) 0.1 10^3/uL (0.0-0.6) 10/04/19 07:16 Absolute Basos (auto) 0.1 10^3/uL (0.0-0.2) 10/04/19 07:16 Seg Neutrophils % 70.2 % (42-78) 10/04/19 07:16 Urine Color YELLOW 10/04/19 07:11 Urine Appearance SLIGHTLY-CLOUDY 10/04/19 07:11 Urine pH 6.0 (5.0-9.0) 10/04/19 07:11 Ur Specific [place] 1.020 10/04/19 07:11 Urine Protein 30 mg/dL (NEGATIVE) H 10/04/19 07:11 Urine Glucose (UA) NEGATIVE mg/dL (NEGATIVE) 10/04/19 07:11 Urine Ketones TRACE mg/dL (NEGATIVE) H 10/04/19 07:11 Urine Blood NEGATIVE (NEGATIVE) 10/04/19 07:11 Urine Nitrite NEGATIVE (NEGATIVE) 10/04/19 07:11 Urine Bilirubin NEGATIVE (NEGATIVE) 10/04/19 07:11 Urine Urobilinogen NEGATIVE mg/dL (<2.0) 10/04/19 07:11 Ur Leukocyte Esterase TRACE (NEGATIVE) H 10/04/19 07:11 Urine Ascorbic Acid NEGATIVE (NEGATIVE) 10/04/19 07:11 Urine Opiates Screen NEGATIVE 10/04/19 07:11 Urine Methadone Screen NEGATIVE 10/04/19 07:11 Ur Barbiturates Screen NEGATIVE 10/04/19 07:11 Ur Phencyclidine Scrn NEGATIVE 10/04/19 07:11 Ur Amphetamines Screen NEGATIVE 10/04/19 07:11 U Benzodiazepines Scrn NEGATIVE 10/04/19 07:11 Urine Cocaine Screen NEGATIVE 10/04/19 07:11 U Marijuana (THC) Screen NEGATIVE 10/04/19 07:11 Blood Type A POSITIVE 10/04/19 07:16 Antibody Screen NEGATIVE 10/04/19 07:16 Plan Plan of Treatment: f/u at [facility] Time Spent: Less than 30 Minutes
[2019-10-06] MEDS: PRENATAL VITAMIN W DHA CAPSULE PO SCH (09:43)
[2019-10-06] MEDS: DOCUSATE SODIUM 100 MG CAPSULE PO SCH (09:43)
[2019-10-06] MEDS: SENNOSIDES/DOCUSATE 8.6-50 MG 1 EACH TABLET PO SCH (09:43)
[2019-10-06] MEDS: FERROUS SULFATE 325 MG TABLET PO SCH (09:43)
[2019-10-06 10:02] VITALS: BP 122/61
== END 2019-10-06 11:30 | disposition home or self-care (01) | DRG 807 ==
LOC: LR 06:53 → 2S 18:27
PROVIDERS: ADMIT Obstetrics & Gynecology Gynecology; ATTEND Obstetrics & Gynecology Gynecology
PROC: 10E0XZZ Delivery of Products of Conception, External Approach (ICD-10-PCS; principal; 2019-10-04)
PROC: 0HQ9XZZ Repair Perineum Skin, External Approach (ICD-10-PCS; 2019-10-04)
PROC: 3E033VJ Introduction of Other Hormone into Peripheral Vein, Percutaneous Approach (ICD-10-PCS; 2019-10-04)
PROC: 10907ZC Drainage of Amniotic Fluid, Therapeutic from Products of Conception, Via Natural or Artificial Opening (ICD-10-PCS; 2019-10-04)
DX: O48.0 Post-term pregnancy (principal); Z37.0 Single live birth; O70.0 First degree perineal laceration during delivery; O99.824 Streptococcus B carrier state complicating childbirth; O69.81X0 Labor and delivery complicated by cord around neck, without compression, not applicable or unspecified; Z28.82 Immunization not carried out because of caregiver refusal; Z3A.40 40 weeks gestation of pregnancy
CPT/HCPCS: 1967; 36415; 80307; 81005; 85025; 85027; 86592; 86850; 86900; 86901; 88307; C1758; J2540; J2590; J3010; J3490